=== PATIENT | male | born 1950 | race Caucasian/White ===

== ENCOUNTER 2025-03-07 14:36 | Inpatient (IN) ==
[2025-03-07 16:59] LABS: Basophils # (Auto) 0.03 K/mcL (0.00-0.30); Basophils % (Auto) 0.2 % (0.0-2.0); Eosinophils # (Auto) 0.12 K/mcL (0.00-0.70); Eosinophils % (Auto) 0.7 % (0.0-7.0); Hematocrit 46.2 % (40.1-51.0); Hemoglobin 16.2 g/dL (13.7-17.5); Lymphocytes # (Auto) 1.49 K/mcL (1.50-4.80); Lymphocytes % (Auto) 8.7 % (15.5-49.0); Mean Cell Volume 91.3 fL (80.0-100.0); Mean Corpuscular HGB Conc 35.1 g/dL (31.0-36.0); Mean Platelet Volume 9.6 fL (8.8-12.5); Monocytes # (Auto) 1.04 K/mcL (0.10-0.90); Monocytes % (Auto) 6.1 % (1.0-12.0); Platelet Count 231 K/mcL (140-440); RBC 5.06 M/mcL (4.63-6.08); Red Cell Distribution Width 12.2 % (11.5-14.5); WBC 17.2 K/mcL (4.5-11.0)
[2025-03-07 17:14] LABS: ALT/SGPT 13 U/L (<40); AST/SGOT 17 U/L (<40); Albumin 4.2 gm/dL (3.2-5.2); Albumin/Globulin Ratio 1.8 (1.0-2.3); Alkaline Phosphatase 82 U/L (39-117); Bilirubin,Total 0.6 mg/dL (0.1-1.0); Blood Urea Nitrogen 10 mg/dL (8-23); Calcium 9.5 mg/dL (8.6-10.4); Carbon Dioxide 24 mmol/L (22-30); Chloride 103 mmol/L (96-108); Globulin 2.4 gm/dL (2.2-3.7); Glomerular Filtration Rate 94; Glucose 97 mg/dL (70-105); Potassium 3.6 mmol/L (3.3-5.1); Sodium 139 mmol/L (133-145); Thyroid Stimulating Hormone 1.95 uIU/mL (0.27-5.01)
[2025-03-07] MEDS: 0.9 % SODIUM CHLORIDE 1,000 ML IV SCH (17:24)
[2025-03-07 18:05] LABS: Appearance,Urine Cloudy (Clear); Bilirubin,Urine Negative (Negative); Color,Urine Yellow; Glucose,Urine (UA) Negative (Negative); Ketones,Urine Negative (Negative); Leukocyte Esterase,Urine Negative /uL (Negative); Nitrate,Urine Negative (Negative); PH,Urine 8.5 (5.0-9.0); Protein,Urine Negative (Negative); Specific Gravity,Urine 1.015 (1.000-1.035); Urine Blood Negative ery/mcL (Negative); Urine RBC 0 /hpf (0-3); Urine Squamous Epithelial Cell 0 /hpf (0-4); Urine WBC 0 /hpf (0-4); Urobilinogen,Urine Normal
[2025-03-07 18:16] LABS: Free T4 (Free Thyroxine) 1.25 ng/dL (0.93-1.70)
[2025-03-07 19:28] LABS: Basophils % (Manual) 1 % (0-2); Lymphocytes % 11 % (15-49); Monocytes % (Manual) 9 % (1-12); Platelet Estimate NORMAL (Normal); RBC Morphology NORMAL (Normal); Segmented Neutrophils % 79 % (38-78)
[2025-03-07] MEDS ORDERED: MAGNESIUM HYDROXIDE 30 ML ORAL.SUSP PO PRN (20:37)
[2025-03-07] MEDS ORDERED: ONDANSETRON 4 MG/2 ML VIAL IV PRN (20:37)
[2025-03-07] MEDS ORDERED: hydrALAZINE 20 MG/ML VIAL IV PRN (20:37)
[2025-03-07] MEDS ORDERED: MAGNESIUM SULFATE 2 GM/50 ML BAG IV PRN (20:37)
[2025-03-07] MEDS ORDERED: IPRATROPIUM/ALBUTEROL 3 ML AMPUL.NEB NEB PRN (20:37)
[2025-03-07] MEDS ORDERED: SENNOSIDES 1 TABLET PO PRN (20:37)
[2025-03-07] MEDS ORDERED: POTASSIUM CHLORIDE 40 MEQ in DEXTROSE 5% IN WATER 500 ML IV PRN (20:37)
[2025-03-07] MEDS ORDERED: POTASSIUM CHLORIDE 20 MEQ TABLET PO PRN ×2 (20:37)
[2025-03-07] MEDS ORDERED: ENALAPRILAT 1.25 MG/ML VIAL IV PRN (20:37)
[2025-03-07] MEDS ORDERED: LACTULOSE 20 GM/30 ML ORAL.SOL PO PRN (20:37)
[2025-03-07] MEDS ORDERED: POLYETHYLENE GLYCOL 3350 17 GM PACKET PO PRN (20:37)
[2025-03-07] MEDS ORDERED: METOCLOPRAMIDE 10 MG/2 ML VIAL IV PRN (20:37)
[2025-03-07] MEDS: oxyCODONE IR 5 MG TABLET PO PRN (21:44)
[2025-03-07] MEDS: POLYETHYLENE GLYCOL 3350 17 GM PACKET PO ONE (21:44)
[2025-03-07] MEDS: traZODone HCL 100 MG TABLET PO SCH (21:45)
[2025-03-07] MEDS: DOCUSATE SODIUM 100 MG CAPSULE PO SCH (21:45)
[2025-03-07] MEDS: NORTRIPTYLINE 10 MG CAPSULE PO SCH (21:45)
[2025-03-07] MEDS: 0.9 % SODIUM CHLORIDE 10 ML SYRINGE IV SCH (21:46)
[2025-03-07] MEDS: fentaNYL 50 MCG PATCH TOPICAL SCH (22:36)
[2025-03-08 05:59] LABS: Hematocrit 40.1 % (40.1-51.0); Hemoglobin 14.1 g/dL (13.7-17.5); Mean Cell Volume 92.4 fL (80.0-100.0); Mean Corpuscular HGB Conc 35.2 g/dL (31.0-36.0); Mean Platelet Volume 9.8 fL (8.8-12.5); Platelet Count 201 K/mcL (140-440); RBC 4.34 M/mcL (4.63-6.08); Red Cell Distribution Width 12.3 % (11.5-14.5); WBC 12.8 K/mcL (4.5-11.0)
[2025-03-08 06:48] LABS: ALT/SGPT 12 U/L (<40); AST/SGOT 23 U/L (<40); Albumin 3.5 gm/dL (3.2-5.2); Albumin/Globulin Ratio 1.7 (1.0-2.3); Alkaline Phosphatase 69 U/L (39-117); Bilirubin,Direct 0.2 mg/dL (<0.3); Bilirubin,Total 0.8 mg/dL (0.1-1.0); Blood Urea Nitrogen 11 mg/dL (8-23); Calcium 8.5 mg/dL (8.6-10.4); Carbon Dioxide 23 mmol/L (22-30); Chloride 114 mmol/L (96-108); Globulin 2.1 gm/dL (2.2-3.7); Glomerular Filtration Rate 94; Glucose 94 mg/dL (70-105); Lactate Dehydrogenase 228 U/L (135-225); Phosphorous 3.4 mg/dL (2.5-4.5); Potassium 3.6 mmol/L (3.3-5.1); Sodium 148 mmol/L (133-145); Triglycerides 83 mg/dL (<150); Uric Acid 3.9 mg/dL (2.5-8.0)
[2025-03-08 07:49] LABS: Lymphocytes % 10 % (15-49); Monocytes % (Manual) 6 % (1-12); Platelet Estimate NORMAL (Normal); RBC Morphology NORMAL (Normal); Segmented Neutrophils % 84 % (38-78)
[2025-03-08] MEDS: LOSARTAN 25 MG TABLET PO SCH (10:09)
[2025-03-08] MEDS: OMEPRAZOLE 20 MG CAPSULE PO SCH (10:09)
[2025-03-08] MEDS: ENOXAPARIN 40 MG/0.4 ML SYRINGE SQ SCH (10:09)
[2025-03-08] MEDS: DEXTROSE 5% IN WATER 1,000 ML IV ONE (10:55)
[2025-03-08] MEDS: LOSARTAN 25 MG TABLET PO ONE (12:58)
[2025-03-08] MEDS: ACETAMINOPHEN 325 MG TABLET PO PRN (13:47)
[2025-03-08] MEDS: oxyCODONE IR 5 MG TABLET PO PRN (19:24)
[2025-03-09 06:27] LABS: ALT/SGPT 9 U/L (<40); AST/SGOT 16 U/L (<40); Albumin 3.7 gm/dL (3.2-5.2); Albumin/Globulin Ratio 1.8 (1.0-2.3); Alkaline Phosphatase 75 U/L (39-117); Basophils # (Auto) 0.03 K/mcL (0.00-0.30); Basophils % (Auto) 0.4 % (0.0-2.0); Bilirubin,Direct 0.3 mg/dL (<0.3); Bilirubin,Total 0.7 mg/dL (0.1-1.0); Blood Urea Nitrogen 13 mg/dL (8-23); Calcium 8.7 mg/dL (8.6-10.4); Carbon Dioxide 25 mmol/L (22-30); Chloride 106 mmol/L (96-108); Eosinophils # (Auto) 0.24 K/mcL (0.00-0.70); Eosinophils % (Auto) 2.8 % (0.0-7.0); Globulin 2.1 gm/dL (2.2-3.7); Glomerular Filtration Rate 100; Glucose 98 mg/dL (70-105); Hematocrit 26.1 % (40.1-51.0); Hemoglobin 7.5 g/dL (13.7-17.5); Lactate Dehydrogenase 257 U/L (135-225); Lymphocytes # (Auto) 1.29 K/mcL (1.50-4.80); Lymphocytes % (Auto) 15.1 % (15.5-49.0); Mean Cell Volume 86.7 fL (80.0-100.0); Mean Corpuscular HGB Conc 28.7 g/dL (31.0-36.0); Mean Platelet Volume 8.8 fL (8.8-12.5); Monocytes % (Auto) 10.6 % (1.0-12.0); Neutrophils % (Auto) 70.9 % (38.0-78.0); Phosphorous 3.4 mg/dL (2.5-4.5); Platelet Count 430 K/mcL (140-440); Potassium 3.6 mmol/L (3.3-5.1); RBC 3.01 M/mcL (4.63-6.08); Red Cell Distribution Width 18.4 % (11.5-14.5); Sodium 139 mmol/L (133-145); Triglycerides 77 mg/dL (<150); WBC 8.5 K/mcL (4.5-11.0)
[2025-03-09 09:19] LABS: Hematocrit 43.7 % (40.1-51.0)
[2025-03-09] MEDS: LOSARTAN 25 MG TABLET PO SCH (09:58)
[2025-03-09] MEDS: POLYETHYLENE GLYCOL 3350 17 GM PACKET PO SCH (10:17)
[2025-03-10 06:56] LABS: Blood Urea Nitrogen 16 mg/dL (8-23); Calcium 8.6 mg/dL (8.6-10.4); Carbon Dioxide 26 mmol/L (22-30); Chloride 104 mmol/L (96-108); Glomerular Filtration Rate 94; Glucose 108 mg/dL (70-105); Potassium 3.6 mmol/L (3.3-5.1); Sodium 137 mmol/L (133-145)
[2025-03-10 07:01] LABS: Basophils # (Auto) 0.02 K/mcL (0.00-0.30); Basophils % (Auto) 0.2 % (0.0-2.0); Eosinophils # (Auto) 0.33 K/mcL (0.00-0.70); Hematocrit 40.8 % (40.1-51.0); Lymphocytes # (Auto) 2.19 K/mcL (1.50-4.80); Lymphocytes % (Auto) 19.8 % (15.5-49.0); Mean Corpuscular HGB Conc 34.3 g/dL (31.0-36.0); Mean Platelet Volume 9.5 fL (8.8-12.5); Monocytes # (Auto) 1.02 K/mcL (0.10-0.90); Monocytes % (Auto) 9.2 % (1.0-12.0); Neutrophils % (Auto) 67.5 % (38.0-78.0); Platelet Count 188 K/mcL (140-440); RBC 4.34 M/mcL (4.63-6.08); Red Cell Distribution Width 12.7 % (11.5-14.5)
[2025-03-11 09:49] VITALS: TEMP 97.2; O2SAT 96
== END 2025-03-11 09:44 | DRG 948 ==
LOC: ED 14:36 → MEDSUR 14:36
PROVIDERS: ADMIT Internal Medicine; ATTEND Internal Medicine

== ENCOUNTER 2025-10-16 07:09 | Inpatient (IN) ==
[2025-10-16] MEDS ORDERED: IOPAMIDOL 100 ML BOTTLE IV ONE (07:10)
[2025-10-16] MEDS: 0.9 % SODIUM CHLORIDE 1,000 ML IV ONE (07:47)
[2025-10-16 08:06] LABS: Basophils # (Auto) 0.02 K/mcL (0.00-0.30); Basophils % (Auto) 0.1 % (0.0-2.0); Eosinophils # (Auto) 0.01 K/mcL (0.00-0.70); Eosinophils % (Auto) 0.1 % (0.0-7.0); Hematocrit 45.9 % (40.1-51.0); Hemoglobin 15.3 g/dL (13.7-17.5); Lymphocytes # (Auto) 0.57 K/mcL (1.50-4.80); Lymphocytes % (Auto) 3.4 % (15.5-49.0); Mean Corpuscular HGB Conc 33.3 g/dL (31.0-36.0); Monocytes # (Auto) 0.77 K/mcL (0.10-0.90); Monocytes % (Auto) 4.6 % (1.0-12.0); Neutrophils % (Auto) 91.7 % (38.0-78.0); Platelet Count 211 K/mcL (140-440); RBC 5.01 M/mcL (4.63-6.08); WBC 16.7 K/mcL (4.5-11.0)
[2025-10-16 08:26] LABS: ALT/SGPT 9 U/L (<40); AST/SGOT 16 U/L (<40); Albumin 3.8 gm/dL (3.2-5.2); Albumin/Globulin Ratio 1.4 (1.0-2.3); Alkaline Phosphatase 86 U/L (39-117); Anion Gap 13.0 (8.0-16.0); Bilirubin,Total 0.4 mg/dL (0.1-1.0); Blood Urea Nitrogen 15 mg/dL (8-23); C-Reactive Protein 1.26 mg/dL (0.03-0.80); Calcium 9.0 mg/dL (8.6-10.4); Carbon Dioxide 28 mmol/L (22-30); Chloride 100 mmol/L (96-108); Globulin 2.7 gm/dL (2.2-3.7); Glucose 127 mg/dL (70-105); Potassium 3.6 mmol/L (3.3-5.1); Sodium 141 mmol/L (133-145)
[2025-10-16] MEDS: ONDANSETRON 4 MG/2 ML VIAL IV ONE (11:21)
[2025-10-16] MEDS: LACTATED RINGERS 1,000 ML IV ONE (11:21)
[2025-10-16] MEDS: 0.9 % SODIUM CHLORIDE 1,000 ML IV SCH (17:16)
[2025-10-16] MEDS: PANTOPRAZOLE 40 MG VIAL IV SCH (17:19)
[2025-10-16] MEDS: ACETAMINOPHEN 1,000 MG/100 ML BAG IV SCH (17:19)
[2025-10-16] MEDS: PYRIDOSTIGMINE BROMIDE 10 MG/2 ML AMPUL IV SCH (17:58)
[2025-10-16] MEDS: METOCLOPRAMIDE 10 MG/2 ML VIAL IV SCH (17:58)
[2025-10-16] MEDS: PIPERACILLIN SODIUM/TAZOBACTAM 3.375 GM in DEXTROSE 5% IN WATER 50 ML IV ONE (17:58)
[2025-10-16] MEDS: HYDROmorphone 0.5 MG/0.5 ML SYRINGE IV PRN (18:26)
[2025-10-16] MEDS: HYDROmorphone 0.5 MG/0.5 ML SYRINGE ONE (18:59)
[2025-10-16 19:09] LABS: Bilirubin,Urine NEGATIVE (Negative); Color,Urine YELLOW; Glucose,Urine (UA) NEGATIVE (Negative); Ketones,Urine NEGATIVE (Negative); Leukocyte Esterase,Urine NEGATIVE /uL (Negative); PH,Urine 7.0 (5.0-9.0); Protein,Urine NEGATIVE (Negative); Specific Gravity,Urine 1.015 (1.000-1.035); Urobilinogen,Urine 1.0 mg/dL
[2025-10-16] MEDS: LORazepam 2 MG/ML VIAL IV PRN (19:16)
[2025-10-16] MEDS: LORazepam 2 MG/ML VIAL ONE (19:46)
[2025-10-16] MEDS: PIPERACILLIN SODIUM/TAZOBACTAM 3.375 GM in DEXTROSE 5% IN WATER 100 ML IV SCH (22:07)
[2025-10-17] MEDS: LORazepam 2 MG/ML VIAL IV PRN (06:59)
[2025-10-17] MEDS: METHOCARBAMOL 1,000 MG/10 ML VIAL IV PRN (07:49)
[2025-10-17] MEDS: METHYLNALTREXONE BROMIDE 12 MG/0.6 ML SYRINGE SQ SCH (13:18)
[2025-10-17] MEDS: POLYETHYLENE GLYCOL 3350 17 GM PACKET PO SCH (14:29)
[2025-10-17] MEDS: ONDANSETRON 4 MG/2 ML VIAL IV PRN (14:29)
[2025-10-17] MEDS: GABAPENTIN 300 MG CAPSULE PO SCH (21:54)
[2025-10-18 06:56] LABS: Basophils # (Auto) 0.01 K/mcL (0.00-0.30); Basophils % (Auto) 0.1 % (0.0-2.0); Eosinophils # (Auto) 0.01 K/mcL (0.00-0.70); Eosinophils % (Auto) 0.1 % (0.0-7.0); Hematocrit 39.4 % (40.1-51.0); Hemoglobin 12.8 g/dL (13.7-17.5); Lymphocytes # (Auto) 0.90 K/mcL (1.50-4.80); Lymphocytes % (Auto) 11.2 % (15.5-49.0); Mean Corpuscular HGB Conc 32.5 g/dL (31.0-36.0); Monocytes # (Auto) 0.75 K/mcL (0.10-0.90); Monocytes % (Auto) 9.4 % (1.0-12.0); Neutrophils % (Auto) 79.0 % (38.0-78.0); Platelet Count 190 K/mcL (140-440); RBC 4.16 M/mcL (4.63-6.08); WBC 8.0 K/mcL (4.5-11.0)
[2025-10-18 07:05] LABS: ALT/SGPT 16 U/L (<40); AST/SGOT 45 U/L (<40); Albumin 3.3 gm/dL (3.2-5.2); Albumin/Globulin Ratio 1.4 (1.0-2.3); Alkaline Phosphatase 63 U/L (39-117); Anion Gap 15.0 (8.0-16.0); Bilirubin,Direct 0.3 mg/dL (<0.3); Bilirubin,Total 0.5 mg/dL (0.1-1.0); Blood Urea Nitrogen 16 mg/dL (8-23); Calcium 8.2 mg/dL (8.6-10.4); Carbon Dioxide 21 mmol/L (22-30); Chloride 107 mmol/L (96-108); Globulin 2.4 gm/dL (2.2-3.7); Glucose 75 mg/dL (70-105); Phosphorous 2.2 mg/dL (2.5-4.5); Potassium 3.0 mmol/L (3.3-5.1); Sodium 143 mmol/L (133-145); Triglycerides 72 mg/dL (<150); Uric Acid 3.0 mg/dL (2.5-8.0)
[2025-10-18] MEDS: LOSARTAN 25 MG TABLET PO SCH (08:26)
[2025-10-18] MEDS ORDERED: METHYLNALTREXONE BROMIDE 12 MG/0.6 ML SYRINGE SQ SCH (09:00)
[2025-10-18] MEDS: fentaNYL 50 MCG PATCH TOPICAL SCH (14:04)
[2025-10-18] MEDS: POTASSIUM PHOSPHATE 40 MEQ in DEXTROSE 5% IN WATER 500 ML IV SCH (18:06)
[2025-10-19 06:41] LABS: ALT/SGPT 25 U/L (<40); AST/SGOT 50 U/L (<40); Albumin 3.3 gm/dL (3.2-5.2); Albumin/Globulin Ratio 1.4 (1.0-2.3); Alkaline Phosphatase 67 U/L (39-117); Anion Gap 14.0 (8.0-16.0); Bilirubin,Direct < 0.2 mg/dL (0-0.3); Bilirubin,Total 0.4 mg/dL (0.1-1.0); Blood Urea Nitrogen 14 mg/dL (8-23); Calcium 8.2 mg/dL (8.6-10.4); Carbon Dioxide 21 mmol/L (22-30); Chloride 107 mmol/L (96-108); Globulin 2.3 gm/dL (2.2-3.7); Glucose 95 mg/dL (70-105); Phosphorous 3.5 mg/dL (2.5-4.5); Potassium 3.0 mmol/L (3.3-5.1); Sodium 142 mmol/L (133-145); Triglycerides 82 mg/dL (<150); Uric Acid 3.3 mg/dL (2.5-8.0)
[2025-10-20 06:15] LABS: Basophils # (Auto) 0.02 K/mcL (0.00-0.30); Basophils % (Auto) 0.2 % (0.0-2.0); Eosinophils # (Auto) 0.20 K/mcL (0.00-0.70); Eosinophils % (Auto) 1.8 % (0.0-7.0); Hematocrit 39.6 % (40.1-51.0); Hemoglobin 13.1 g/dL (13.7-17.5); Lymphocytes # (Auto) 1.55 K/mcL (1.50-4.80); Lymphocytes % (Auto) 13.8 % (15.5-49.0); Mean Corpuscular HGB Conc 33.1 g/dL (31.0-36.0); Monocytes # (Auto) 0.82 K/mcL (0.10-0.90); Monocytes % (Auto) 7.3 % (1.0-12.0); Neutrophils % (Auto) 76.5 % (38.0-78.0); Platelet Count 203 K/mcL (140-440); RBC 4.23 M/mcL (4.63-6.08); WBC 11.3 K/mcL (4.5-11.0)
[2025-10-20 06:40] LABS: ALT/SGPT 27 U/L (<40); AST/SGOT 38 U/L (<40); Albumin 3.2 gm/dL (3.2-5.2); Albumin/Globulin Ratio 1.4 (1.0-2.3); Alkaline Phosphatase 60 U/L (39-117); Anion Gap 14.0 (8.0-16.0); Bilirubin,Direct < 0.2 mg/dL (0-0.3); Bilirubin,Total 0.3 mg/dL (0.1-1.0); Blood Urea Nitrogen 12 mg/dL (8-23); Calcium 8.1 mg/dL (8.6-10.4); Carbon Dioxide 21 mmol/L (22-30); Chloride 108 mmol/L (96-108); Globulin 2.3 gm/dL (2.2-3.7); Glucose 68 mg/dL (70-105); Phosphorous 2.5 mg/dL (2.5-4.5); Potassium 2.9 mmol/L (3.3-5.1); Sodium 143 mmol/L (133-145); Triglycerides 96 mg/dL (<150); Uric Acid 3.3 mg/dL (2.5-8.0)
[2025-10-20] MEDS: POTASSIUM PHOSPHATE 40 MEQ in DEXTROSE 5% IN WATER 500 ML IV SCH (15:05)
[2025-10-21 05:51] LABS: Basophils # (Auto) 0.02 K/mcL (0.00-0.30); Basophils % (Auto) 0.2 % (0.0-2.0); Eosinophils # (Auto) 0.31 K/mcL (0.00-0.70); Eosinophils % (Auto) 2.7 % (0.0-7.0); Hematocrit 40.1 % (40.1-51.0); Hemoglobin 13.3 g/dL (13.7-17.5); Lymphocytes # (Auto) 1.63 K/mcL (1.50-4.80); Lymphocytes % (Auto) 14.2 % (15.5-49.0); Mean Corpuscular HGB Conc 33.2 g/dL (31.0-36.0); Monocytes # (Auto) 0.95 K/mcL (0.10-0.90); Monocytes % (Auto) 8.3 % (1.0-12.0); Neutrophils % (Auto) 74.1 % (38.0-78.0); Platelet Count 224 K/mcL (140-440); RBC 4.31 M/mcL (4.63-6.08); WBC 11.5 K/mcL (4.5-11.0)
[2025-10-21 06:19] LABS: ALT/SGPT 22 U/L (<40); AST/SGOT 22 U/L (<40); Albumin 3.1 gm/dL (3.2-5.2); Albumin/Globulin Ratio 1.6 (1.0-2.3); Alkaline Phosphatase 57 U/L (39-117); Anion Gap 9.0 (8.0-16.0); Bilirubin,Direct < 0.2 mg/dL (0-0.3); Bilirubin,Total 0.3 mg/dL (0.1-1.0); Blood Urea Nitrogen 10 mg/dL (8-23); Calcium 8.0 mg/dL (8.6-10.4); Carbon Dioxide 23 mmol/L (22-30); Chloride 106 mmol/L (96-108); Globulin 2.0 gm/dL (2.2-3.7); Glucose 102 mg/dL (70-105); Phosphorous 4.1 mg/dL (2.5-4.5); Potassium 3.3 mmol/L (3.3-5.1); Sodium 138 mmol/L (133-145); Triglycerides 69 mg/dL (<150); Uric Acid 2.2 mg/dL (2.5-8.0)
[2025-10-22 13:38] LABS: Basophils # (Auto) 0.04 K/mcL (0.00-0.30); Basophils % (Auto) 0.3 % (0.0-2.0); Eosinophils # (Auto) 0.51 K/mcL (0.00-0.70); Eosinophils % (Auto) 4.4 % (0.0-7.0); Hematocrit 41.8 % (40.1-51.0); Hemoglobin 13.9 g/dL (13.7-17.5); Lymphocytes # (Auto) 1.76 K/mcL (1.50-4.80); Lymphocytes % (Auto) 15.2 % (15.5-49.0); Mean Corpuscular HGB Conc 33.3 g/dL (31.0-36.0); Monocytes # (Auto) 0.84 K/mcL (0.10-0.90); Monocytes % (Auto) 7.2 % (1.0-12.0); Neutrophils % (Auto) 72.2 % (38.0-78.0); Platelet Count 226 K/mcL (140-440); RBC 4.50 M/mcL (4.63-6.08); WBC 11.6 K/mcL (4.5-11.0)
[2025-10-22 14:06] LABS: ALT/SGPT 20 U/L (<40); AST/SGOT 20 U/L (<40); Albumin 3.2 gm/dL (3.2-5.2); Albumin/Globulin Ratio 1.5 (1.0-2.3); Alkaline Phosphatase 63 U/L (39-117); Anion Gap 10.0 (8.0-16.0); Bilirubin,Direct < 0.2 mg/dL (0-0.3); Bilirubin,Total 0.3 mg/dL (0.1-1.0); Blood Urea Nitrogen 8 mg/dL (8-23); Calcium 8.1 mg/dL (8.6-10.4); Carbon Dioxide 23 mmol/L (22-30); Chloride 106 mmol/L (96-108); Globulin 2.2 gm/dL (2.2-3.7); Glucose 105 mg/dL (70-105); Phosphorous 3.1 mg/dL (2.5-4.5); Potassium 3.4 mmol/L (3.3-5.1); Sodium 139 mmol/L (133-145); Triglycerides 100 mg/dL (<150); Uric Acid 1.4 mg/dL (2.5-8.0)
[2025-10-22] MEDS ORDERED: IOPAMIDOL 100 ML BOTTLE IV ONE (15:17)
[2025-10-23 06:36] LABS: Basophils # (Auto) 0.05 K/mcL (0.00-0.30); Basophils % (Auto) 0.4 % (0.0-2.0); Eosinophils # (Auto) 0.66 K/mcL (0.00-0.70); Eosinophils % (Auto) 5.7 % (0.0-7.0); Hematocrit 42.6 % (40.1-51.0); Hemoglobin 14.1 g/dL (13.7-17.5); Lymphocytes # (Auto) 1.66 K/mcL (1.50-4.80); Lymphocytes % (Auto) 14.2 % (15.5-49.0); Mean Corpuscular HGB Conc 33.1 g/dL (31.0-36.0); Monocytes # (Auto) 0.83 K/mcL (0.10-0.90); Monocytes % (Auto) 7.1 % (1.0-12.0); Neutrophils % (Auto) 71.9 % (38.0-78.0); Platelet Count 227 K/mcL (140-440); RBC 4.56 M/mcL (4.63-6.08); WBC 11.7 K/mcL (4.5-11.0)
[2025-10-23 06:42] LABS: ALT/SGPT 21 U/L (<40); AST/SGOT 21 U/L (<40); Albumin 3.3 gm/dL (3.2-5.2); Albumin/Globulin Ratio 1.6 (1.0-2.3); Alkaline Phosphatase 62 U/L (39-117); Anion Gap 10.0 (8.0-16.0); Bilirubin,Direct < 0.2 mg/dL (0-0.3); Bilirubin,Total 0.3 mg/dL (0.1-1.0); Blood Urea Nitrogen 6 mg/dL (8-23); Calcium 8.3 mg/dL (8.6-10.4); Carbon Dioxide 24 mmol/L (22-30); Chloride 109 mmol/L (96-108); Globulin 2.1 gm/dL (2.2-3.7); Glucose 100 mg/dL (70-105); Phosphorous 3.1 mg/dL (2.5-4.5); Potassium 3.3 mmol/L (3.3-5.1); Sodium 143 mmol/L (133-145); Triglycerides 109 mg/dL (<150); Uric Acid 1.4 mg/dL (2.5-8.0)
[2025-10-24 05:58] LABS: Basophils # (Auto) 0.02 K/mcL (0.00-0.30); Basophils % (Auto) 0.2 % (0.0-2.0); Eosinophils # (Auto) 0.88 K/mcL (0.00-0.70); Eosinophils % (Auto) 8.3 % (0.0-7.0); Hematocrit 42.1 % (40.1-51.0); Hemoglobin 13.9 g/dL (13.7-17.5); Lymphocytes # (Auto) 1.99 K/mcL (1.50-4.80); Lymphocytes % (Auto) 18.8 % (15.5-49.0); Mean Corpuscular HGB Conc 33.0 g/dL (31.0-36.0); Monocytes # (Auto) 0.96 K/mcL (0.10-0.90); Monocytes % (Auto) 9.1 % (1.0-12.0); Neutrophils % (Auto) 63.2 % (38.0-78.0); Platelet Count 221 K/mcL (140-440); RBC 4.54 M/mcL (4.63-6.08); WBC 10.6 K/mcL (4.5-11.0)
[2025-10-24 06:15] LABS: ALT/SGPT 19 U/L (<40); AST/SGOT 20 U/L (<40); Albumin 3.2 gm/dL (3.2-5.2); Albumin/Globulin Ratio 1.3 (1.0-2.3); Alkaline Phosphatase 62 U/L (39-117); Anion Gap 11.0 (8.0-16.0); Bilirubin,Direct < 0.2 mg/dL (0-0.3); Bilirubin,Total 0.3 mg/dL (0.1-1.0); Blood Urea Nitrogen 6 mg/dL (8-23); Calcium 8.3 mg/dL (8.6-10.4); Carbon Dioxide 23 mmol/L (22-30); Chloride 108 mmol/L (96-108); Globulin 2.4 gm/dL (2.2-3.7); Glucose 100 mg/dL (70-105); Phosphorous 3.0 mg/dL (2.5-4.5); Potassium 3.2 mmol/L (3.3-5.1); Sodium 142 mmol/L (133-145); Triglycerides 97 mg/dL (<150); Uric Acid 1.5 mg/dL (2.5-8.0)
[2025-10-24] MEDS: POTASSIUM CHLORIDE 10 MEQ/100 ML BAG IV SCH (18:08)
[2025-10-24] MEDS: POTASSIUM CHLORIDE 40 MEQ in DEXTROSE 5% IN WATER 500 ML IV ONE (18:27)
[2025-10-25] MEDS ORDERED: MIDAZOLAM 2 MG/2 ML VIAL ONE (08:17)
[2025-10-25] MEDS ORDERED: fentaNYL 100 MCG/2 ML VIAL ONE (08:17)
[2025-10-25] MEDS ORDERED: PROPOFOL 200 MG/20 ML VIAL IV ONE ×2 (08:17)
[2025-10-25] MEDS ORDERED: fentaNYL 100 MCG/2 ML VIAL IV PRN (08:23)
[2025-10-25] MEDS ORDERED: METOPROLOL TARTRATE 5 MG/5 ML VIAL IV PRN (08:23)
[2025-10-25] MEDS ORDERED: NALOXONE HCL 0.4 MG/ML VIAL IV PRN (08:23)
[2025-10-25] MEDS ORDERED: diphenhydrAMINE 50 MG/ML VIAL IV PRN (08:23)
[2025-10-25] MEDS ORDERED: ePHEDrine 50 MG/ML AMPUL IV PRN (08:23)
[2025-10-25] MEDS ORDERED: MEPERIDINE 25 MG/ML VIAL IV PRN (08:23)
[2025-10-25] MEDS ORDERED: DROPERIDOL 5 MG/2 ML VIAL IV PRN (08:23)
[2025-10-25] MEDS ORDERED: BENZOCAINE/MENTHOL 1 LOZENGE PO PRN (08:23)
[2025-10-25] MEDS ORDERED: ONDANSETRON 4 MG/2 ML VIAL IV PRN (08:23)
[2025-10-25] MEDS ORDERED: IPRATROPIUM/ALBUTEROL 3 ML AMPUL.NEB NEB PRN (08:23)
[2025-10-25] MEDS ORDERED: ETOMIDATE 20 MG/10 ML VIAL IV ONE (08:48)
[2025-10-25] MEDS ORDERED: SUCCINYLCHOLINE 200 MG/10 ML VIAL IV ONE (08:48)
[2025-10-25] MEDS ORDERED: DEXAMETHASONE 10 MG/ML VIAL ONE (08:49)
[2025-10-25] MEDS ORDERED: ONDANSETRON 4 MG/2 ML VIAL ONE (08:49)
[2025-10-26 18:37] LABS: ALT/SGPT 21 U/L (<40); AST/SGOT 27 U/L (<40); Albumin 3.3 gm/dL (3.2-5.2); Albumin/Globulin Ratio 1.3 (1.0-2.3); Alkaline Phosphatase 65 U/L (39-117); Anion Gap 11.0 (8.0-16.0); Bilirubin,Direct < 0.2 mg/dL (0-0.3); Bilirubin,Total 0.2 mg/dL (0.1-1.0); Blood Urea Nitrogen 10 mg/dL (8-23); Calcium 8.3 mg/dL (8.6-10.4); Carbon Dioxide 23 mmol/L (22-30); Chloride 105 mmol/L (96-108); Globulin 2.6 gm/dL (2.2-3.7); Glucose 89 mg/dL (70-105); Phosphorous 3.1 mg/dL (2.5-4.5); Potassium 4.4 mmol/L (3.3-5.1); Sodium 139 mmol/L (133-145); Triglycerides 105 mg/dL (<150); Uric Acid 2.0 mg/dL (2.5-8.0)
[2025-10-26 18:39] LABS: Prealbumin 21.1 mg/dL (20.0-40.0)
[2025-10-26] MEDS: CHLORHEXIDINE GLUCONATE 15 ML UDC SWABMOUTH SCH (21:21)
[2025-10-27 04:24] LABS: Basophils # (Auto) 0.04 K/mcL (0.00-0.30); Basophils % (Auto) 0.3 % (0.0-2.0); Eosinophils # (Auto) 0.59 K/mcL (0.00-0.70); Eosinophils % (Auto) 5.0 % (0.0-7.0); Hematocrit 39.4 % (40.1-51.0); Hemoglobin 12.9 g/dL (13.7-17.5); Lymphocytes # (Auto) 2.41 K/mcL (1.50-4.80); Lymphocytes % (Auto) 20.5 % (15.5-49.0); Mean Corpuscular HGB Conc 32.7 g/dL (31.0-36.0); Monocytes # (Auto) 0.85 K/mcL (0.10-0.90); Monocytes % (Auto) 7.2 % (1.0-12.0); Neutrophils % (Auto) 66.7 % (38.0-78.0); Platelet Count 227 K/mcL (140-440); RBC 4.13 M/mcL (4.63-6.08); WBC 11.8 K/mcL (4.5-11.0)
[2025-10-27 04:38] LABS: ALT/SGPT 20 U/L (<40); AST/SGOT 18 U/L (<40); Albumin 3.1 gm/dL (3.2-5.2); Albumin/Globulin Ratio 1.3 (1.0-2.3); Alkaline Phosphatase 63 U/L (39-117); Anion Gap 11.0 (8.0-16.0); Bilirubin,Direct < 0.2 mg/dL (0-0.3); Bilirubin,Total 0.2 mg/dL (0.1-1.0); Blood Urea Nitrogen 11 mg/dL (8-23); Calcium 8.3 mg/dL (8.6-10.4); Carbon Dioxide 24 mmol/L (22-30); Chloride 105 mmol/L (96-108); Globulin 2.3 gm/dL (2.2-3.7); Glucose 91 mg/dL (70-105); Phosphorous 3.4 mg/dL (2.5-4.5); Potassium 3.9 mmol/L (3.3-5.1); Sodium 140 mmol/L (133-145); Triglycerides 100 mg/dL (<150); Uric Acid 2.1 mg/dL (2.5-8.0)
[2025-10-28 06:28] LABS: ALT/SGPT 15 U/L (<40); AST/SGOT 14 U/L (<40); Albumin 3.1 gm/dL (3.2-5.2); Albumin/Globulin Ratio 1.4 (1.0-2.3); Alkaline Phosphatase 64 U/L (39-117); Anion Gap 10.0 (8.0-16.0); Bilirubin,Direct < 0.2 mg/dL (0-0.3); Bilirubin,Total 0.3 mg/dL (0.1-1.0); Blood Urea Nitrogen 12 mg/dL (8-23); Calcium 8.5 mg/dL (8.6-10.4); Carbon Dioxide 26 mmol/L (22-30); Chloride 105 mmol/L (96-108); Globulin 2.2 gm/dL (2.2-3.7); Glucose 104 mg/dL (70-105); Phosphorous 3.4 mg/dL (2.5-4.5); Potassium 4.0 mmol/L (3.3-5.1); Sodium 141 mmol/L (133-145); Triglycerides 89 mg/dL (<150); Uric Acid 1.7 mg/dL (2.5-8.0)
[2025-10-28 10:14] VITALS: TEMP 97.7; O2SAT 95
== END 2025-10-28 10:00 | DRG 391 ==
LOC: ED 07:09 → MEDSUR 15:16
PROVIDERS: ADMIT Family Medicine Adult Medicine; ATTEND Family Medicine Adult Medicine